=== PATIENT | female | born 1960 | race Caucasian/White ===

== ENCOUNTER → 2017-12-24 | Outpatient (CLI) | payer OTHER ==
[2017-12-25 14:34] LABS: Stool Occult Bld Immuno 1 Negative (NEGATIVE); Stool Occult Bld Immuno 2 Positive (NEGATIVE); Stool Occult Bld Immuno 3 Positive (NEGATIVE)
== END | disposition home or self-care (01) ==
LOC: LAB SHORT 08:50 → LAB EV 08:50
PROVIDERS: Nurse Practitioner Family
DX: Z00.00 Encounter for general adult medical examination without abnormal findings (principal); Z12.11 Encounter for screening for malignant neoplasm of colon
CPT/HCPCS: G0328

== ENCOUNTER → 2018-08-21 | Outpatient (CLI) | payer OTHER ==
[2018-08-22 15:06] LABS: HPV 16 Negative (Negative); HPV 18 Negative (Negative); HPV OTHER HR TYPES Negative (Negative)
== END | disposition home or self-care (01) ==
LOC: LAB SHORT 12:47 → LAB 12:47
PROVIDERS: Obstetrics & Gynecology
DX: Z01.419 Encounter for gynecological examination (general) (routine) without abnormal findings (principal)
CPT/HCPCS: 87624; G0123

== ENCOUNTER 2018-10-07 06:22 | Day surgery (SDC) | payer OTHER ==
[~2018-10-07] VITALS: Ht 170.2 cm; Wt 87.2 kg
[~2018-10-07 06:22] MED LIST: Aspir-Trin325 MG PO; Ex-Lax15 MG PO; STOOL SOFTENER1 EAC1 PO
--- NOTE | 2018-10-07 07:17 | NUR ---
History, Chart, Medications and Allergies reviewed before start of procedure.Patient confirms NPO status and agrees with scheduled surgery. Lungs clear T/O to Auscultation. ENEMA TO STOOL CLEAR PT NOT CLEANED OUT
--- NOTE | 2018-10-07 08:07 | NUR ---
10/07/18 0807 Shanna Duckworth History, Chart, Medications and Allergies reviewed before start of procedure. Patient confirms NPO status and agrees with scheduled surgery. PATIENT DETERMINED TO BE ASA APPROPRIATE FOR PROPOFOL SEDATION PRIOR TO START OF PROCEDURE BY DR. FLANNERY. 3-LEAD EKG REVIEWED WITH PHYSICIAN PRIOR TO START OF PROCEDURE. MONITOR INTACT WITH CONTINUOUS PULSE OXIMETRY AND INTERMITTENT BP.
--- NOTE | 2018-10-07 08:20 | NUR ---
IV TO RIGHT FA INFILTRATED. LEFT IN PLACE TO BE REMOVED POST-PROCEDURE.
--- NOTE | 2018-10-07 09:09 | NUR ---
PT RETURN TO RECOVERY APPROX FIVE MINUTES AGO. LETHARGIC, SLOW TO RESPOND INITIALLY, THOUGH STARTS TO WAKE EASILY OVER LAST FIVE MINUTES. NO C/O PAIN OR DISCOMFORT. FAMILY MEMBER AT BEDSIDE.
--- NOTE | 2018-10-07 09:18 | NUR ---
PT MORE AWAKE, SITTING IN HI FOWLERS SIPPING ON PO FLUIDS.
--- NOTE | 2018-10-07 09:24 | NUR ---
REVIEWED DISCHARGE INSTRUCTIONS WITH PATIENT AND FAMILY MEMBER - BOTH OF WHOM VERBALIZE UNDERSTANDING OF ALL INSTRUCTIONS GIVEN.
--- NOTE | 2018-10-07 09:31 | NUR ---
IV DC X 2 SITES WITH TIPS INTACT. PT TOLERATED WELL. STOOD AT EDGE OF BED AND DRESSED SELF WITH SBA.
--- NOTE | 2018-10-07 09:56 | NUR ---
PT DISCHARGED HOME VIA AT [address] HER.
== END 2018-10-07 22:55 | disposition home or self-care (01) ==
LOC: ORSCMMR 06:22 → ORD 08:00 → ORSCMMR 08:00
PROVIDERS: Internal Medicine Gastroenterology
PROC: 0DBM8ZX Excision of Descending Colon, Via Natural or Artificial Opening Endoscopic, Diagnostic (ICD-10-PCS; principal; 2018-10-07 08:00)
PROC: 0DBK8ZX Excision of Ascending Colon, Via Natural or Artificial Opening Endoscopic, Diagnostic (ICD-10-PCS; principal; 2018-10-07 08:00)
PROC: 0DBL8ZX Excision of Transverse Colon, Via Natural or Artificial Opening Endoscopic, Diagnostic (ICD-10-PCS; principal; 2018-10-07 08:00)
DX: R19.5 Other fecal abnormalities (principal); D12.4 Benign neoplasm of descending colon; D12.3 Benign neoplasm of transverse colon; D12.2 Benign neoplasm of ascending colon; K63.5 Polyp of colon; K64.8 Other hemorrhoids; Z87.891 Personal history of nicotine dependence
CPT/HCPCS: 88305; J2250; J2704; J7120